=== PATIENT | female | born 1960 | race Caucasian/White ===

== ENCOUNTER → 2017-10-30 | Outpatient (CLI) | payer MEDICARE, BC ==
[~2017-10-30] MED LIST: AMBIEN10 MG PO; AMITRIPTYLINE H50 MG PO; AMITRIPTYLINE H75 MG PO; BENTYL20 MG PO; BUSPIRONE HCL15 MG PO; CARAFATE PO; CARAFATE1 GM PO; CARDURA4 MG PO; CARVEDILOL25 MG PO; CLONIDINE HCL0.3 MG PO; CYCLOBENZAPRINE5 MG PO; DEXILANT60 MG PO; DULERA 100 MCG/13 GM INH; DULERA PO; ELAVIL PO; ESTRADIOL2 MG PO; FLEXERIL10 MG PO; GLUCOPHAGE500 MG PO; HYDROCODONE PO; HYDROCORTISONE10 MG PO; IMITREX100 MG IM/IV/SC; IOPAMIDOL 300MG/ML 50ML INFUS..BTL IV ONE; KLONOPIN1 MG PO; LASIX40 MG PO; LIDOCAINE HCL 2% LOCAL 20 ML VIAL ONE; LISINOPRIL-HCT1 EACH PO; LYRICA75 MG PO; MELATONIN3 M1 PO; MONTELUKAST SOD10 MG PO; NEURONTIN400 MG PO; NEURONTIN600 MG PO; NITROGLYCERIN SL; NORCO 10-325 T1 EACH PO; NORVASC5 MG PO; OXYCODONE HCL30 MG PO; PHENERGAN PO; POTASSIUM CITR10 MEQ PO; PRAVASTATIN SOD40 MG PO; PRINIVIL20 MG PO; PROGESTERONE100 MG PO; PROMETHAZINE HC25 M1 PO; RANITIDINE HCL300 M1 PO; REGLAN10 MG PO; REMERON45 MG PO; ROBAXIN-750750 MG PO; SEROQUEL300 MG PO; SODIUM CHLORIDE 0.9% 50ML 50 ML ONE; SYNTHROID200 MCG PO; TERBUTALINE SU2.5 MG PO; TOPAMAX100 MG PO; TOPAMAX200 MG; TRAZODONE HCL100 MG PO; TUDORZA PRESS400 MCG INH; VALIUM10 MG PO; VERAPAMIL ER240 M1 PO; VITAMIN B12 INJ IM; VOLTAREN100 GM; WELLBUTRIN SR100 MG PO; WELLBUTRIN SR150 MG PO; ZOFRAN8 MG PO
--- NOTE | 2017-10-30 11:39 | Diagnostic Imaging Report ---
TECHNIQUE: Computed tomography imaging of the right KNEE was performed after intra-articular contrast. Axial HISTORY: knee pain COMPARISON: None available. Dose modulation, iterative reconstruction, and/or weight based adjustment of the mA/kV was utilized to reduce the radiation dose to as low as reasonably achievable. FINDINGS: Intra-articular contrast visualized. The anterior cruciate ligament and posterior cruciate ligament contours visualized. The undersurface of the medial meniscus is in contact with the articular cartilage. No contrast is in between which limits evaluation for a undersurface tear. Fraying of the superior aspect of the posterior horn. No visualized root avulsion. No full-thickness cartilage defect. Partial-thickness cartilage loss within the medial compartment. IMPRESSION: No directly visualized meniscal tear. Limited evaluation of the undersurface medial meniscus posterior body and horn. Given the medial compartment partial thickness cartilage loss, a tear may be present. Signed by: Dr. Emanuel Torres M.D. on 10/30/2017 11:35 AM
--- NOTE | 2017-10-30 11:45 | Diagnostic Imaging Report ---
Procedure: Right knee arthrogram with fluoroscopic guidance acid wash operator: Dr. Rae Solares Pre-operative diagnosis: Right knee pain Post-operative diagnosis: Right knee pain Medications: Lidocaine 1% for local anesthesia, Intra-articular: 30 cc of Isovue/saline mix (20 cc of normal saline mixed with 10 cc of Isovue 300) Fluoroscopy time: 2.5 minutes; Dose area product: 44.6 cGycm2 Estimated blood loss: None. Specimens: None Implants: None TECHNIQUE/FINDINGS: Informed consent was obtained and documented in the medical record after discussion of risks and benefits. The patient was placed in the supine position on the fluoroscopic table with the right knee slightly flexed. The skin overlying the right knee was marked and 1% lidocaine was administered for local anesthesia. Then under intermittent fluoroscopic guidance, a 22-gauge needle was advanced to the lateral femoral condyle cortical surface. Subsequently, 30 cc of a mixture of Isovue and Saline as above was injected interarticularly slowly with intermittent fluoroscopy. Intra-articular injection of contrast demonstrated expected contrast distribution. The needle was removed. The knee was flexed and extended to assist in distribution of contrast. The patient tolerated the procedure well without immediate complication. IMPRESSION: Right knee arthrogram with fluoroscopic guidance as above. Please refer to subsequent CT arthrogram for further details. Signed by: Dr. Rae Solares MD on 10/30/2017 11:41 AM
--- NOTE | 2017-10-30 13:21 | Diagnostic Imaging Report ---
History: Knee pain Comparison studies: None Technique: Axial images were obtained from T12 through the sacrum. Coronal and sagittal images reconstructed from the axial data. Intravenous contrast: None Findings: Number of non-rib bearing vertebral bodies: 5 Alignment: Normal lordosis. No scoliosis. Soft tissues: No acute abnormalities. Left lower back soft tissue catheter partially visualized Paraspinal muscles: Unremarkable. Vertebrae: No fractures, infection or neoplasm. Degenerative changes: L1-L2: No abnormalities. L2-L3: No abnormalities. L3-L4: No abnormalities. L4-L5: Diffuse disc bulge, mild facet hypertrophy and ligamentum flavum thickening results in mild canal stenosis, mild right and severe left foraminal narrowing L5-S1: Patent canal and foramina Sacroiliac joints: Mild degenerative changes. IMPRESSION: 1. Severe left foraminal narrowing at L4-L5 secondary to diffuse disc bulge and mild facet hypertrophy. Signed by: DR Konstantin Lozano M.D. on 10/30/2017 1:18 PM
== END ==
LOC: DX 08:04
PROVIDERS: ATTEND Orthopaedic Surgery
DX: M25.561 Pain in right knee (principal); M79.604 Pain in right leg; M51.36 Other intervertebral disc degeneration, lumbar region
CPT/HCPCS: 27370; 72131; 73701; J2001; Q9967

== ENCOUNTER → 2017-11-14 | Day surgery (SDC) | payer MEDICARE, BC ==
[2017-11-12 12:46] LABS: BASOPHILS % 0.3 % (0.0-1.0); EOSINOPHILS # (AUTO) 0.1 (0.0-0.4); EOSINOPHILS % 2.3 % (0.0-6.0); HEMATOCRIT 43.4 % (34.2-44.1); HEMOGLOBIN 14.7 g/dL (12.0-16.0); LYMPHOCYTES # (AUTO) 1.9 (1.0-3.2); LYMPHOCYTES % 30.1 % (18.0-39.1); MEAN CORPUSCULAR HEMOGLOBIN 32.9 pg (28-32); MEAN CORPUSCULAR HGB CONC 33.9 g/dL (31-35); MEAN CORPUSCULAR VOLUME 97.1 fL (81-99); MONOCYTES # (AUTO) 0.6 (0.2-0.8); MONOCYTES % 9.7 % (4.4-11.3); NEUTROPHILS # (AUTO) 3.5 (2.1-6.9); NEUTROPHILS % 57.3 % (38.7-80.0); PLATELET COUNT 202 x10e3/uL (140-360); RED BLOOD COUNT 4.47 x10e6/uL (3.6-5.1)
[~2017-11-14] MED LIST changes: +ARMOUR THYROID60 MG PO; +B12 INJ; +FENTANYL CITRATE/PF 100MCG/2 ML INJ ONE; +FUROSEMIDE40 MG PO; +GLUCOPHAGE850 MG; -IMITREX100 MG IM/IV/SC; +IMITREX100 MG SC; -IOPAMIDOL 300MG/ML 50ML INFUS..BTL IV ONE; -LIDOCAINE HCL 2% LOCAL 20 ML VIAL ONE; +LIDOCAINE HCL 2% LOCAL INJ 5 ML SDV VIAL INJ ONE; +MELATONIN3 MG PO; +MIDAZOLAM HCL 2 MG/2 ML VIAL ONE; +NEURONTIN400 MG; +POTASSIUM10 MEQ/100 IV; +PROGESTERONE200 MG PO; +PROPOFOL IV EMULSION 10 MG/ML 50 ML VIAL ONE; +RANITIDINE HCL300 MG; -SODIUM CHLORIDE 0.9% 50ML 50 ML ONE
[2017-11-14 14:30] VITALS: BP 121/83
--- NOTE | 2017-11-14 15:12 | Operative Report ---
DATE OF PROCEDURE: November 14, 2017 REFERRING PHYSICIAN: Dr. Rosy Pittman. PROCEDURES PERFORMED: 1. Esophagogastroduodenoscopy with esophageal dilatation and biopsies. 2. Colonoscopy with polypectomy. INDICATIONS FOR ESOPHAGOGASTRODUODENOSCOPY: Dysphagia to solids. INDICATIONS FOR COLONOSCOPY: Surveillance colonoscopy, personal history of colon polyps. MEDICATION: Patient was done under MAC. Please see anesthesiologist's note. PROCEDURE: With the patient in the left lateral decubitus position, the flexible fiberoptic Olympus gastroscope was introduced into the esophagus under direct visualization without any difficulty. There was some patchy erythema noted in the distal esophagus. Two minute nodules were noted at the GE junction, and those were biopsied. A mild stricture was noted at the GE junction, and that was dilated to a size 52-[place]. The scope was then advanced with ease into the stomach, traversing a small hiatal hernia. Mucosa overlying the antrum and the body revealed some patchy erythema and low-grade edema, and biopsies were obtained and sent to stain for H. pylori. There were some postoperative changes noted. The pylorus was intubated with ease, and the scope was advanced all the way to the 2nd portion of the duodenum. The scope was then withdrawn slowly. Mucosa overlying the proximal 2nd portion and the duodenal bulb appeared to be within normal limits. The scope was then withdrawn back into the stomach and retroflexed, and the mucosa overlying the fundus and the cardia appeared to be within normal limits. The previously described hiatal hernia was also noted in the retroflexed position. The scope was then straightened out. It was subsequently withdrawn. Patient tolerated procedure well. IMPRESSION: 1. Distal esophagitis, mild. 2. Minute nodule gastroesophageal junction, biopsied. 3. Mild stricture at gastroesophageal junction, dilated to a size 52-[place]. 4. Small hiatal hernia. 5. Gastritis biopsied. Biopsies sent to stain for H. pylori. PLAN: Follow up histology. Continue Dexilant 60 mg 1 p.o. a.c. b.i.d. Patient was then turned around and after adequate lubrication of the anal canal, a flexible fiberoptic Olympus colonoscope was inserted into the rectum with ease and advanced all the way to the cecum. It was then withdrawn slowly. Mucosa overlying the cecum, ascending colon, transverse colon grossly appeared to be within normal limits. Of note, the colon was excessively spastic and irritable, primarily the left colon, and it was suboptimally visualized. One polyp was __hot biopsied from the descending colon. Some diverticular disease was noted in the sigmoid colon. The rectum grossly appeared to be within normal limits. The scope was then retroflexed into the distal rectum and small internal hemorrhoids were noted, none of which was actively bleeding. The scope was then straightened out. It was subsequently withdrawn. Patient tolerated the procedure well. IMPRESSION: 1. Colon excessively irritable and spastic, suboptimally visualized, primarily left colon. 2. Descending colon polyp __excised with the cold biopsy forceps. 3. Diverticulosis. 4. Internal hemorrhoids, none actively bleeding. PLAN: Follow up histology. Initiate high-fiber low-fat diet. Initiate high-fiber supplement. Continue Linzess 290 mcg 1 p.o. q.a.m. a.c. and will add VSL#3 one p.o. b.i.d. Job#: [id number] EV cc:ROSY PITTMAN MD
== END | disposition home or self-care (01) ==
LOC: OR 10:05
PROVIDERS: ATTEND Internal Medicine Gastroenterology
DX: K21.0 Gastro-esophageal reflux disease with esophagitis (principal); D12.4 Benign neoplasm of descending colon; R10.13 Epigastric pain; K22.8 Other specified diseases of esophagus; K29.70 Gastritis, unspecified, without bleeding; R11.2 Nausea with vomiting, unspecified; R14.2 Eructation; Z86.010 Personal history of colon polyps; K62.89 Other specified diseases of anus and rectum; K59.00 Constipation, unspecified; Z68.37 Body mass index [BMI] 37.0-37.9, adult; R03.0 Elevated blood-pressure reading, without diagnosis of hypertension; E11.9 Type 2 diabetes mellitus without complications; K22.70 Barrett's esophagus without dysplasia; E03.9 Hypothyroidism, unspecified; G20 Parkinson's disease; F02.80 Dementia in other diseases classified elsewhere, unspecified severity, without behavioral disturbance, psychotic disturbance, mood disturbance, and anxiety; J44.9 Chronic obstructive pulmonary disease, unspecified; I10 Essential (primary) hypertension; Z79.84 Long term (current) use of oral hypoglycemic drugs; K44.9 Diaphragmatic hernia without obstruction or gangrene; K22.2 Esophageal obstruction; K63.5 Polyp of colon; K57.30 Diverticulosis of large intestine without perforation or abscess without bleeding; K64.8 Other hemorrhoids; Z01.810 Encounter for preprocedural cardiovascular examination; Z01.812 Encounter for preprocedural laboratory examination
CPT/HCPCS: 36415 ×2; 43239; 43249; 45380; 82948; 85025; 88305; 88312; 93005; J2001; J2250; 43450; 45378; 45384

== ENCOUNTER → 2018-12-24 | Day surgery (SDC) | payer MEDICARE, BC ==
[~2018-12-24] MED LIST changes: +CRESTOR10 MG PO; -FENTANYL CITRATE/PF 100MCG/2 ML INJ ONE; -LIDOCAINE HCL 2% LOCAL INJ 5 ML SDV VIAL INJ ONE; +LOSARTAN POTAS100 MG PO; -MIDAZOLAM HCL 2 MG/2 ML VIAL ONE; +POTASSIUM CHLO10 ME1 PO; +PROPOFOL IV EMULSION 10 MG/ML 20 ML VIAL ONE; -PROPOFOL IV EMULSION 10 MG/ML 50 ML VIAL ONE; +QUETIAPINE FUM100 MG PO; +VIT B12 INJ
[2018-12-24 16:05] VITALS: BP 107/78
--- NOTE | 2018-12-24 22:34 | Operative Report ---
DATE OF PROCEDURE: 12/24/2018 SURGEON: Coleman Adames MD PROCEDURE: Esophagogastroduodenoscopy with biopsies and esophageal dilatation. INDICATIONS FOR EGD: Dysphagia, heartburn, and indigestion. MEDICATIONS: The patient was done under MAC. Please see anesthesiologist's note. PROCEDURE IN DETAIL: With the patient in left lateral decubitus position, a flexible fiberoptic Olympus gastroscope was introduced into the esophagus under direct visualization without any difficulty. There was some patchy erythema noted in distal esophagus. There was focal nodularity noted at the GE junction that was biopsied. Mild stricture was noted at the GE junction that was dilated to size 52-[place]. The scope was then advanced with ease into the stomach traversing a small hiatal hernia. Mucosa overlying the antrum and the body revealed some patchy erythema and [id number] edema and biopsies were obtained and sent to stain for H pylori. The patient appears to be status post gastric sleeve. Pylorus was of normal contour and shape, it was intubated with ease and the scope was advanced all the way to the second portion of the duodenum. The scope was then withdrawn slowly and mucosa overlying the proximal second portion and the duodenal bulb appeared to be within normal limits. The scope was then withdrawn back into the stomach and retroflexed. Mucosa overlying the fundus and the cardia other than for some postoperative changes appeared to be within normal limits. The scope was then straightened out, it was subsequently withdrawn. The patient tolerated the procedure well. IMPRESSION: 1. Distal esophagitis, mild. 2. Focal nodularity, GE junction, biopsied. 3. Mild stricture, GE junction, dilated to size 52-[place]. 4. Small hiatal hernia. 5. Status post gastric sleeve, gastritis, biopsied. Biopsies sent to stain for H pylori. PLAN: Follow up histology. Continue Dexilant 60 mg 1 p.o. a.c. b.i.d. and Carafate 1 g p.o. a.c. t.i.d. and at bedtime. Coleman Adames MD [facility]/JOSE /[id number] cc: Francesco Pittman
== END | disposition home or self-care (01) ==
LOC: OR 12:53
PROVIDERS: ATTEND Internal Medicine Gastroenterology
DX: K20.8 Other esophagitis (principal); K29.50 Unspecified chronic gastritis without bleeding; K22.2 Esophageal obstruction; K29.60 Other gastritis without bleeding; K21.9 Gastro-esophageal reflux disease without esophagitis; K22.8 Other specified diseases of esophagus; K44.9 Diaphragmatic hernia without obstruction or gangrene; Z98.84 Bariatric surgery status; K59.00 Constipation, unspecified; E11.9 Type 2 diabetes mellitus without complications; E03.9 Hypothyroidism, unspecified; J44.9 Chronic obstructive pulmonary disease, unspecified; I10 Essential (primary) hypertension; G89.29 Other chronic pain; I48.91 Unspecified atrial fibrillation; E66.01 Morbid (severe) obesity due to excess calories; Z88.2 Allergy status to sulfonamides; Z88.8 Allergy status to other drugs, medicaments and biological substances; Z01.810 Encounter for preprocedural cardiovascular examination; Z79.84 Long term (current) use of oral hypoglycemic drugs; Z68.38 Body mass index [BMI] 38.0-38.9, adult; Z86.010 Personal history of colon polyps; Z95.0 Presence of cardiac pacemaker
CPT/HCPCS: 36415; 43239; 43450; 82948; 88305; 88312; 93005; J2704; 43235